=== PATIENT | female | born 1965 | race Caucasian/White ===

== ENCOUNTER 2017-01-16 07:46 | Inpatient (IN) | payer MEDICAID, OTHER ==
[~2017-01-16] VITALS: Ht 162.6 cm; Wt 100.0 kg
[2017-01-16 08:02] LABS: GLUCOSE,POINT OF CARE 69 MG/DL (70-110)
[2017-01-16 08:22] LABS: BASOPHILS # (AUTO) 0.04 K/uL (0.00-0.20); BASOPHILS % (AUTO) 0.5 % (0.0-2.0); EOSINOPHILS # (AUTO) 0.24 K/uL (0.00-0.70); EOSINOPHILS % (AUTO) 2.73 % (1.0-6.0); HEMATOCRIT 32.6 % (36-46); LYMPHOCYTES # (AUTO) 2.5 K/uL (1.0-4.8); LYMPHOCYTES % (AUTO) 28.3 % (22.0-44.0); MEAN CORPUSCULAR HEMOGLOBIN 28.7 pg (26.0-34.0); MEAN CORPUSCULAR HGB CONC 33.7 G/dL (31.0-37.0); MEAN CORPUSCULAR VOLUME 85 fL (80-100); MONOCYTES # (AUTO) 0.8 K/uL (0.1-1.0); MONOCYTES % (AUTO) 9.3 % (2.0-9.0); NEUTROPHILS # (AUTO) 5.2 K/uL (1.8-7.7); NEUTROPHILS % (AUTO) 59.3 % (40.0-70.0); PLATELET COUNT (AUTO) 244 K/uL (150-450); RED BLOOD CELL COUNT(AUTO) 3.84 MIL/uL (4.00-5.20); RED CELL DISTRIBUTION WIDTH 14.7 % (11.5-14.5); WHITE BLOOD COUNT (AUTO) 8.8 K/uL (4.5-11.0)
[2017-01-16 08:27] LABS: ANION GAP 10 mmol/L (8-16); CALCIUM, TOTAL 9.3 mg/dL (8.8-10.5); CARBON DIOXIDE 26 mmol/L (22-29); CHLORIDE 102 mmol/L (98-107); CREATININE 0.84 mg/dL (0.60-1.30); GLOMERULAR FILTR. RATE CALC > 60 mL/min (>60); POTASSIUM 3.7 mmol/L (3.5-5.1); SODIUM SERUM 138 mmol/L (136-145); UREA NITROGEN, BLOOD 19 mg/dL (7-18)
[2017-01-16] MEDS ORDERED: DiphenhydrAMINE HCL 50 MG/ML VIAL IM ONE (08:30)
[2017-01-16] MEDS ORDERED: LORazepam 2 MG/ML VIAL IM ONE (08:30)
[2017-01-16] MEDS ORDERED: HALOPERIDOL LACTATE 5 MG/ML VIAL IM ONE (08:30)
[2017-01-16 08:33] LABS: ALANINE AMINOTRANSFERASE 25 U/L (12-78); ALBUMIN 3.8 g/dL (3.4-5.0); ASPARTATE AMINOTRANSFERASE 34 U/L (15-37); BILIRUBIN,TOTAL 0.3 mg/dL (0.1-1.0); TOTAL PROTEIN, SERUM 7.4 g/dL (6.4-8.2)
[2017-01-16] MEDS ORDERED: ZOLPIDEM TARTRATE 10 MG TABLET PO PRN ×2 (09:15→10:45)
[2017-01-16] MEDS ORDERED: OLANZapine 5 MG RAPDIS TABLET PO PRN ×2 (09:15→10:45)
[2017-01-16] MEDS ORDERED: LORazepam 2 MG TABLET PO PRN ×2 (09:15→10:45)
[2017-01-16] MEDS ORDERED: GuaiFENesin/D-METHORPHAN [SUGAR-FREE] 200-20MG/10 ML SYRUP UDCUP PO PRN (13:15)
[2017-01-16] MEDS ORDERED: HydrOXYzine PAMOATE 50 MG CAPSULE PO PRN (13:15)
[2017-01-16] MEDS ORDERED: LOPERAMIDE HCL 2 MG CAPSULE PO PRN (13:15)
[2017-01-16] MEDS ORDERED: PROMETHAZINE HCL 25 MG TABLET PO PRN (13:15)
[2017-01-16] MEDS ORDERED: MAGNESIUM HYDROXIDE SUSPENSION 30 ML UDCUP PO PRN (13:15)
[2017-01-16] MEDS ORDERED: TUBERCULIN, PURIFIED PROTEIN DERIVATIVE 5 TU/0.1 ML SYG ID ONE (13:15)
[2017-01-16] MEDS ORDERED: MAG HYDROX/AL HYDROX/SIMETH ES 30 ML SUSPENSION UDCUP PO PRN (13:15)
[2017-01-16] MEDS: THIAMINE HCL 100 MG TABLET PO SCH (16:27)
[2017-01-16] MEDS ORDERED: OLANZapine 5 MG RAPDIS TABLET PO SCH ×2 (21:00)
[2017-01-17 01:00] VITALS: BP 100/60
[2017-01-17] MEDS: ACETAMINOPHEN 325 MG TABLET PO PRN ×3 (01:04→13:40)
[2017-01-17 08:10] VITALS: BP 107/58
[2017-01-17] MEDS: MULTIVITAMINS WITH MINERALS, THERAPEUTIC TABLET PO SCH (08:10)
[2017-01-17] MEDS: FOLIC ACID 1 MG TABLET PO SCH (08:11)
[2017-01-17] MEDS: NALTREXONE HCL 50 MG TABLET PO SCH (08:11)
[2017-01-17] MEDS: THIAMINE HCL 100 MG TABLET PO SCH ×2 (08:11→16:19)
[2017-01-17 09:10] VITALS: BP 109/60
[2017-01-17 13:40] VITALS: BP 110/60
[2017-01-17 16:00] VITALS: BP 116/71
[2017-01-17] MEDS ORDERED: QUEtiapine FUMARATE 100 MG TABLET PO PRN (17:15)
[2017-01-17] MEDS ORDERED: QUEtiapine FUMARATE 200 MG TABLET PO SCH (21:00)
[2017-01-18 01:02] VITALS: BP 100/53
[2017-01-18 08:05] VITALS: BP 122/67
[2017-01-18] MEDS: THIAMINE HCL 100 MG TABLET PO SCH ×2 (08:19→16:06)
[2017-01-18] MEDS: MULTIVITAMINS WITH MINERALS, THERAPEUTIC TABLET PO SCH (08:19)
[2017-01-18] MEDS: FOLIC ACID 1 MG TABLET PO SCH (08:19)
[2017-01-18] MEDS: NALTREXONE HCL 50 MG TABLET PO SCH (08:20)
[2017-01-18 16:25] VITALS: BP 108/67
[2017-01-18] MEDS ORDERED: QUEtiapine FUMARATE 200 MG TABLET PO SCH (21:00)
[2017-01-19] MEDS: MULTIVITAMINS WITH MINERALS, THERAPEUTIC TABLET PO SCH (08:06)
[2017-01-19] MEDS: FOLIC ACID 1 MG TABLET PO SCH (08:06)
[2017-01-19] MEDS: THIAMINE HCL 100 MG TABLET PO SCH (08:06)
[2017-01-19] MEDS: NALTREXONE HCL 50 MG TABLET PO SCH (08:06)
[2017-01-19 08:33] VITALS: BP 121/79
[2017-01-19] MEDS ORDERED: NALT50 PO (09:21)
[2017-01-19] MEDS ORDERED: QUET200T PO (09:21)
== END 2017-01-19 11:30 | disposition home or self-care (01) | DRG 750 ==
LOC: EMS 07:51 → 3EC 11:01 → EMS 11:08
PROVIDERS: ADMIT Psychiatry & Neurology Psychiatry; ATTEND Psychiatry & Neurology Psychiatry
DX: F25.9 Schizoaffective disorder, unspecified (principal); Z78.1 Physical restraint status; E11.9 Type 2 diabetes mellitus without complications; E66.9 Obesity, unspecified; D64.9 Anemia, unspecified; F17.210 Nicotine dependence, cigarettes, uncomplicated; Z79.84 Long term (current) use of oral hypoglycemic drugs; Z65.3 Problems related to other legal circumstances; Z71.6 Tobacco abuse counseling; Z68.37 Body mass index [BMI] 37.0-37.9, adult; Z79.899 Other long term (current) drug therapy
CPT/HCPCS: 82962; 93005; 96372; 99285; G0480; J1200; J1630; J2060

== ENCOUNTER 2017-02-01 04:20 | Inpatient (IN) | payer MEDICAID, OTHER ==
[~2017-02-01] VITALS: Ht 157.5 cm; Wt 90.0 kg
[~2017-02-01 04:20] MED LIST: ATOR20TA86 PO; LEVO200 PO; METF1000 PO; NALT50 PO; QUET100T PO; QUET200T PO
[2017-02-01 04:42] LABS: GLUCOSE,POINT OF CARE 132 MG/DL (70-110)
[2017-02-01 04:59] LABS: BASOPHILS # (AUTO) 0.04 K/uL (0.00-0.20); BASOPHILS % (AUTO) 0.4 % (0.0-2.0); EOSINOPHILS # (AUTO) 0.28 K/uL (0.00-0.70); EOSINOPHILS % (AUTO) 2.96 % (1.0-6.0); HEMATOCRIT 35.6 % (36-46); HEMOGLOBIN 11.7 g/dL (12.0-16.0); LYMPHOCYTES # (AUTO) 2.8 K/uL (1.0-4.8); LYMPHOCYTES % (AUTO) 29.8 % (22.0-44.0); MEAN CORPUSCULAR HEMOGLOBIN 28.5 pg (26.0-34.0); MEAN CORPUSCULAR HGB CONC 32.9 G/dL (31.0-37.0); MEAN CORPUSCULAR VOLUME 87 fL (80-100); MONOCYTES # (AUTO) 0.4 K/uL (0.1-1.0); MONOCYTES % (AUTO) 3.9 % (2.0-9.0); NEUTROPHILS # (AUTO) 5.9 K/uL (1.8-7.7); PLATELET COUNT (AUTO) 302 K/uL (150-450); RED CELL DISTRIBUTION WIDTH 15.7 % (11.5-14.5); WHITE BLOOD COUNT (AUTO) 9.4 K/uL (4.5-11.0)
[2017-02-01 05:05] LABS: ANION GAP 6 mmol/L (8-16); CALCIUM, TOTAL 9.4 mg/dL (8.8-10.5); CARBON DIOXIDE 32 mmol/L (22-29); CHLORIDE 105 mmol/L (98-107); CREATININE 0.75 mg/dL (0.60-1.30); GLOMERULAR FILTR. RATE CALC > 60 mL/min (>60); POTASSIUM 4.1 mmol/L (3.5-5.1); SODIUM SERUM 143 mmol/L (136-145); UREA NITROGEN, BLOOD 13 mg/dL (7-18)
[2017-02-01 05:11] LABS: ALANINE AMINOTRANSFERASE 36 U/L (12-78); ALBUMIN 4.2 g/dL (3.4-5.0); ASPARTATE AMINOTRANSFERASE 27 U/L (15-37); BILIRUBIN,TOTAL 0.4 mg/dL (0.1-1.0); TOTAL PROTEIN, SERUM 8.4 g/dL (6.4-8.2)
[2017-02-01] MEDS ORDERED: HALOPERIDOL 5 MG TABLET PO PRN (06:00)
[2017-02-01] MEDS ORDERED: DiphenhydrAMINE HCL 50 MG/ML VIAL IM ONE (06:00)
[2017-02-01] MEDS ORDERED: LORazepam 2 MG TABLET PO PRN (06:00)
[2017-02-01] MEDS ORDERED: LORazepam 2 MG/ML VIAL IM ONE (06:00)
[2017-02-01] MEDS ORDERED: ZOLPIDEM TARTRATE 10 MG TABLET PO PRN (06:00)
[2017-02-01] MEDS ORDERED: HALOPERIDOL LACTATE 5 MG/ML VIAL IM ONE (06:00)
[2017-02-01 06:36] LABS: ADD UA MICROSCOPIC NO; APPEARANCE,URINE CLEAR (CLEAR); GLUCOSE, URINE (UA) NEGATIVE (NEGATIVE); KETONES,URINE NEGATIVE (NEGATIVE); LEUKOCYTE ESTERASE ,URINE NEGATIVE (NEGATIVE); OCCULT BLOOD,URINE NEGATIVE (NEGATIVE); PH,URINE 5.5 (5.0-8.0); PROTEIN,URINE NEGATIVE (NEGATIVE)
[2017-02-01 12:07] LABS: GLUCOSE,POINT OF CARE 130 MG/DL (70-110)
[2017-02-01 14:42] VITALS: BP 119/60
[2017-02-01 14:42] LABS: GLUCOSE,POINT OF CARE 221 MG/DL (70-110)
[2017-02-01] MEDS ORDERED: GLUCAGON,HUMAN RECOMBINANT 1 MG VIAL IM PRN (14:45)
[2017-02-01] MEDS ORDERED: PNEUMOCOCCAL VACCINE POLYVALENT 0.5 ML VIAL [PPSV23] IM ONE (15:30)
[2017-02-01 16:05] VITALS: BP 132/77
[2017-02-01] MEDS ORDERED: PROMETHAZINE HCL 25 MG TABLET PO PRN (16:15)
[2017-02-01] MEDS ORDERED: HydrOXYzine PAMOATE 50 MG CAPSULE PO PRN (16:15)
[2017-02-01] MEDS ORDERED: GuaiFENesin/D-METHORPHAN [SUGAR-FREE] 200-20MG/10 ML SYRUP UDCUP PO PRN (16:15)
[2017-02-01] MEDS ORDERED: QUEtiapine FUMARATE 100 MG TABLET PO PRN (16:15)
[2017-02-01] MEDS ORDERED: LOPERAMIDE HCL 2 MG CAPSULE PO PRN (16:15)
[2017-02-01] MEDS ORDERED: MAGNESIUM HYDROXIDE SUSPENSION 30 ML UDCUP PO PRN (16:15)
[2017-02-01] MEDS ORDERED: ACETAMINOPHEN 325 MG TABLET PO PRN (16:15)
[2017-02-01] MEDS ORDERED: MAG HYDROX/AL HYDROX/SIMETH ES 30 ML SUSPENSION UDCUP PO PRN (16:15)
[2017-02-01 16:52] LABS: GLUCOSE COMMENT 1 Received Meds; GLUCOSE,POINT OF CARE 143 MG/DL (70-110)
[2017-02-01] MEDS: THIAMINE HCL 100 MG TABLET PO SCH (16:56)
[2017-02-01] MEDS: MetFORMIN HCL 500 MG TABLET PO SCH (16:56)
[2017-02-01] MEDS: INSULIN ASPART 100 UNITS/ML SQ PRN (17:05)
[2017-02-01] MEDS ORDERED: QUEtiapine FUMARATE 200 MG TABLET PO SCH (21:00)
[2017-02-01 21:02] LABS: GLUCOSE,POINT OF CARE 129 MG/DL (70-110)
[2017-02-02 02:47] VITALS: BP 117/72
[2017-02-02] MEDS: MetFORMIN HCL 500 MG TABLET PO SCH ×2 (06:20→16:52)
[2017-02-02 06:26] LABS: GLUCOSE,POINT OF CARE 99 MG/DL (70-110)
[2017-02-02 08:27] VITALS: BP 117/57
[2017-02-02] MEDS: FOLIC ACID 1 MG TABLET PO SCH (09:00)
[2017-02-02] MEDS: MULTIVITAMINS WITH MINERALS, THERAPEUTIC TABLET PO SCH (09:00)
[2017-02-02] MEDS: THIAMINE HCL 100 MG TABLET PO SCH ×2 (09:00→16:46)
[2017-02-02] MEDS: NALTREXONE HCL 50 MG TABLET PO SCH (09:00)
[2017-02-02 12:17] LABS: GLUCOSE,POINT OF CARE 98 MG/DL (70-110)
[2017-02-02] MEDS ORDERED: NALT50 PO (14:43)
[2017-02-02] MEDS ORDERED: QUET200T29 PO (14:43)
[2017-02-02 16:17] VITALS: BP 109/63
[2017-02-02 16:36] LABS: GLUCOSE,POINT OF CARE 193 MG/DL (70-110)
[2017-02-02] MEDS: INSULIN ASPART 100 UNITS/ML SQ PRN ×2 (16:52→20:17)
[2017-02-02 20:12] LABS: GLUCOSE,POINT OF CARE 148 MG/DL (70-110)
[2017-02-02] MEDS: BENZOCAINE/MENTHOL LOZENGE PO PRN (20:18)
[2017-02-02] MEDS ORDERED: QUEtiapine FUMARATE 200 MG TABLET PO SCH (21:00)
[2017-02-03 06:17] LABS: GLUCOSE,POINT OF CARE 116 MG/DL (70-110)
[2017-02-03] MEDS: MetFORMIN HCL 500 MG TABLET PO SCH (06:33)
[2017-02-03] MEDS ORDERED: METF500T4 PO (07:59)
[2017-02-03 08:23] VITALS: BP 116/72
[2017-02-03] MEDS: THIAMINE HCL 100 MG TABLET PO SCH (08:51)
[2017-02-03] MEDS: MULTIVITAMINS WITH MINERALS, THERAPEUTIC TABLET PO SCH (08:51)
[2017-02-03] MEDS: NALTREXONE HCL 50 MG TABLET PO SCH (08:51)
[2017-02-03] MEDS: FOLIC ACID 1 MG TABLET PO SCH (08:51)
[2017-02-03] MEDS: BENZOCAINE/MENTHOL LOZENGE PO PRN (10:01)
== END 2017-02-03 11:16 | disposition home or self-care (01) | DRG 750 ==
LOC: EMS 04:22 → EEVIPCON 04:22 → B3A 12:48
PROVIDERS: ADMIT Psychiatry & Neurology Psychiatry; ATTEND Psychiatry & Neurology Psychiatry
DX: F25.0 Schizoaffective disorder, bipolar type (principal); E11.9 Type 2 diabetes mellitus without complications; I10 Essential (primary) hypertension; F17.210 Nicotine dependence, cigarettes, uncomplicated; J11.1 Influenza due to unidentified influenza virus with other respiratory manifestations; Z91.14 Patient's other noncompliance with medication regimen; Z91.19 Patient's noncompliance with other medical treatment and regimen; Z79.84 Long term (current) use of oral hypoglycemic drugs; Z28.21 Immunization not carried out because of patient refusal; Z79.899 Other long term (current) drug therapy
CPT/HCPCS: 82962; 87081; 96372; 99285; G0480; J1200; J1630; J2060

== ENCOUNTER 2018-08-24 08:57 | Inpatient (IN) | payer MEDICAID, OTHER ==
[~2018-08-24] VITALS: Ht 172.7 cm; Wt 91.9 kg
[~2018-08-24 08:57] MED LIST changes: +METF-960 PO; -NALT50 PO; +NALT50TA6 PO; -QUET200T PO; +QUET200T29 PO
[2018-08-24 10:24] LABS: BASOPHILS % (AUTO) 0.7 % (0.0-2.0); EOSINOPHILS % (AUTO) 2.2 % (1.0-6.0); HEMATOCRIT 31.2 % (36-46); HEMOGLOBIN 10.8 g/dL (12.0-16.0); LYMPHOCYTES # (AUTO) 2.8 K/uL (1.0-4.8); LYMPHOCYTES % (AUTO) 31.9 % (22.0-44.0); MEAN CORPUSCULAR HEMOGLOBIN 30.6 pg (26.0-34.0); MEAN CORPUSCULAR HGB CONC 34.5 G/dL (31.0-37.0); MEAN CORPUSCULAR VOLUME 89 fL (80-100); MONOCYTES # (AUTO) 0.6 K/uL (0.1-1.0); MONOCYTES % (AUTO) 7.3 % (2.0-9.0); NEUTROPHILS # (AUTO) 5.1 K/uL (1.8-7.7); NEUTROPHILS % (AUTO) 57.9 % (40.0-70.0); PLATELET COUNT (AUTO) 295 K/uL (150-450); RED BLOOD CELL COUNT(AUTO) 3.52 MIL/uL (4.00-5.20); RED CELL DISTRIBUTION WIDTH 14.1 % (11.5-14.5)
[2018-08-24 10:33] LABS: ANION GAP 8 mmol/L (8-16); CALCIUM, TOTAL 8.9 mg/dL (8.8-10.5); CARBON DIOXIDE 28 mmol/L (22-29); CHLORIDE 104 mmol/L (98-107); CREATININE 0.64 mg/dL (0.60-1.30); GLOMERULAR FILTR. RATE CALC > 60 mL/min (>60); GLUCOSE,RANDOM 165 mg/dL (70-110); POTASSIUM 3.6 mmol/L (3.5-5.1); SODIUM SERUM 140 mmol/L (136-145); UREA NITROGEN, BLOOD 11 mg/dL (7-18)
[2018-08-24 10:38] LABS: ALANINE AMINOTRANSFERASE 31 U/L (12-78); ALBUMIN 3.6 g/dL (3.4-5.0); ALKALINE PHOSPHATASE 100 U/L (46-116); ASPARTATE AMINOTRANSFERASE 22 U/L (15-37); BILIRUBIN,TOTAL 0.4 mg/dL (0.1-1.0); TOTAL PROTEIN, SERUM 7.7 g/dL (6.4-8.2)
[2018-08-24] MEDS ORDERED: HALOPERIDOL LACTATE 5 MG/ML VIAL IM ONE (11:15)
[2018-08-24] MEDS ORDERED: LORazepam 2 MG/ML VIAL IM ONE (11:15)
[2018-08-24] MEDS ORDERED: DiphenhydrAMINE HCL 50 MG/ML VIAL IM ONE (11:15)
[2018-08-24] MEDS ORDERED: OLANZapine 5 MG RAPDIS TABLET PO PRN (14:45)
[2018-08-24] MEDS ORDERED: ZOLPIDEM TARTRATE 10 MG TABLET PO PRN (14:45)
[2018-08-24] MEDS ORDERED: PETROLATUM,WHITE 71 GM JELLY TP PRN ×2 (15:00→18:30)
[2018-08-24] MEDS ORDERED: DOCUSATE SODIUM 100 MG CAPSULE PO PRN ×2 (15:00→18:30)
[2018-08-24] MEDS ORDERED: ACETAMINOPHEN 325 MG TABLET PO PRN ×2 (15:00→18:30)
[2018-08-24] MEDS ORDERED: MAGNESIUM HYDROXIDE SUSPENSION 30 ML UDCUP PO PRN ×2 (15:00→18:30)
[2018-08-24] MEDS ORDERED: CloNIDine HCL 0.1 MG TABLET PO PRN ×2 (15:00→18:30)
[2018-08-24] MEDS ORDERED: ALBUTEROL SULFATE HFA 90 MCG/PUFF 8 GM INHALER IH PRN ×2 (15:00→18:30)
[2018-08-24] MEDS ORDERED: ONDANSETRON HCL 4 MG TABLET PO PRN ×2 (15:00→18:30)
[2018-08-24] MEDS ORDERED: MAG HYDROX/AL HYDROX/SIMETH ES 30 ML SUSPENSION UDCUP PO PRN ×2 (15:00→18:30)
[2018-08-24] MEDS ORDERED: NICOTINE 14 MG/24 HOUR PATCH TD PRN ×2 (15:00→18:30)
[2018-08-24] MEDS ORDERED: IBUPROFEN 400 MG TABLET PO PRN ×2 (15:00→18:30)
[2018-08-24] MEDS ORDERED: GuaiFENesin/D-METHORPHAN [SUGAR-FREE] 200-20MG/10 ML SYRUP UDCUP PO PRN ×2 (15:00→18:30)
[2018-08-24] MEDS ORDERED: LOPERAMIDE HCL 2 MG CAPSULE PO PRN ×2 (15:00→18:30)
[2018-08-24 16:30] VITALS: BP 101/69
[2018-08-24] MEDS ORDERED: PNEUMOCOCCAL VACCINE POLYVALENT 0.5 ML VIAL [PPSV23] IM ONE (19:30)
[2018-08-25 04:57] VITALS: BP 133/76
[2018-08-25] MEDS: MetFORMIN HCL 500 MG TABLET PO SCH ×2 (06:40→16:31)
[2018-08-25 07:28] LABS: GLUCOMETER DEV NAME(LOC) BV3S 2; GLUCOSE,POINT OF CARE 99 MG/DL (70-110)
[2018-08-25 07:28] LABS: GLUCOMETER DEV NAME(LOC) BV3S 2; GLUCOSE,POINT OF CARE 206 MG/DL (70-110)
[2018-08-25 07:31] LABS: BASOPHILS % (AUTO) 0.6 % (0.0-2.0); EOSINOPHILS % (AUTO) 1.5 % (1.0-6.0); LYMPHOCYTES # (AUTO) 2.4 K/uL (1.0-4.8); LYMPHOCYTES % (AUTO) 25.6 % (22.0-44.0); MEAN CORPUSCULAR HEMOGLOBIN 30.8 pg (26.0-34.0); MEAN CORPUSCULAR HGB CONC 34.5 G/dL (31.0-37.0); MEAN CORPUSCULAR VOLUME 90 fL (80-100); MONOCYTES # (AUTO) 0.5 K/uL (0.1-1.0); MONOCYTES % (AUTO) 5.1 % (2.0-9.0); NEUTROPHILS # (AUTO) 6.3 K/uL (1.8-7.7); NEUTROPHILS % (AUTO) 67.2 % (40.0-70.0); PLATELET COUNT (AUTO) 288 K/uL (150-450); RED BLOOD CELL COUNT(AUTO) 3.58 MIL/uL (4.00-5.20); RED CELL DISTRIBUTION WIDTH 14.2 % (11.5-14.5)
[2018-08-25 08:05] LABS: ALANINE AMINOTRANSFERASE 26 U/L (12-78); ALBUMIN 3.4 g/dL (3.4-5.0); ALKALINE PHOSPHATASE 99 U/L (46-116); ANION GAP 3 mmol/L (8-16); ASPARTATE AMINOTRANSFERASE 23 U/L (15-37); BILIRUBIN,TOTAL 0.4 mg/dL (0.1-1.0); CALCIUM, TOTAL 8.6 mg/dL (8.8-10.5); CARBON DIOXIDE 34 mmol/L (22-29); CHLORIDE 105 mmol/L (98-107); CHOL/HDL RATIO 3.3 (3.9-5.7); CHOLESTEROL 160 mg/dL (131-200); CREATININE 0.81 mg/dL (0.60-1.30); GLOMERULAR FILTR. RATE CALC > 60 mL/min (>60); GLUCOSE,RANDOM 167 mg/dL (70-110); HDL CHOLESTEROL 49 mg/dL (40-60); LDL CHOL (CALC.) 90 mg/dL (0-130); POTASSIUM 4.3 mmol/L (3.5-5.1); SODIUM SERUM 142 mmol/L (136-145); THYROID STIMULATING HORMONE 6.56 uIU/mL (0.36-3.74); TOTAL PROTEIN, SERUM 6.8 g/dL (6.4-8.2); TRIGLYCERIDES 104 mg/dL (15-150); UREA NITROGEN, BLOOD 10 mg/dL (7-18)
[2018-08-25 08:13] LABS: HEMOGLOBIN A1C 8.4 % (4.5-6.2)
[2018-08-25 08:19] VITALS: BP 124/69
[2018-08-25 10:43] LABS: GLUCOMETER DEV NAME(LOC) BV3S 2; GLUCOSE,POINT OF CARE 188 MG/DL (70-110)
[2018-08-25] MEDS: FLUoxetine HCL 20 MG CAPSULE PO SCH (10:43)
[2018-08-25] MEDS: ATORVASTATIN CALCIUM 20 MG TABLET PO SCH (10:43)
[2018-08-25] MEDS: LORazepam 2 MG TABLET PO PRN (16:31)
[2018-08-25] MEDS: QUEtiapine FUMARATE 100 MG TABLET PO SCH (20:19)
[2018-08-26] MEDS: LEVOTHYROXINE SODIUM 200 MCG TABLET PO SCH (06:22)
[2018-08-26] MEDS: MetFORMIN HCL 500 MG TABLET PO SCH ×3 (06:38→17:41)
[2018-08-26 08:19] VITALS: BP 105/58
[2018-08-26] MEDS: FLUoxetine HCL 20 MG CAPSULE PO SCH (08:48)
[2018-08-26] MEDS: ATORVASTATIN CALCIUM 20 MG TABLET PO SCH (08:49)
[2018-08-26 11:18] LABS: GLUCOMETER DEV NAME(LOC) BV3S 2; GLUCOSE,POINT OF CARE 136 MG/DL (70-110)
[2018-08-26 11:18] LABS: GLUCOMETER DEV NAME(LOC) BV3S 2; GLUCOSE,POINT OF CARE 207 MG/DL (70-110)
[2018-08-26 12:28] LABS: GLUCOMETER DEV NAME(LOC) BV3S 2; GLUCOSE,POINT OF CARE 176 MG/DL (70-110)
[2018-08-26 16:07] VITALS: BP 115/85
[2018-08-26] MEDS: LORazepam 2 MG TABLET PO PRN (17:41)
[2018-08-26 20:58] LABS: GLUCOMETER DEV NAME(LOC) BV3S 2; GLUCOSE,POINT OF CARE 172 MG/DL (70-110)
[2018-08-26] MEDS: QUEtiapine FUMARATE 100 MG TABLET PO SCH (21:20)
[2018-08-27 06:05] VITALS: BP 118/82
[2018-08-27] MEDS: LEVOTHYROXINE SODIUM 200 MCG TABLET PO SCH (06:12)
[2018-08-27] MEDS: MetFORMIN HCL 500 MG TABLET PO SCH ×2 (06:43→16:18)
[2018-08-27 06:49] LABS: GLUCOMETER DEV NAME(LOC) BV3S 2; GLUCOSE,POINT OF CARE 116 MG/DL (70-110)
[2018-08-27 08:22] VITALS: BP 130/76
[2018-08-27] MEDS: ATORVASTATIN CALCIUM 20 MG TABLET PO SCH (08:51)
[2018-08-27] MEDS: FLUoxetine HCL 20 MG CAPSULE PO SCH (08:51)
[2018-08-27] MEDS: LORazepam 2 MG TABLET PO PRN ×2 (09:36→16:18)
[2018-08-27 11:48] LABS: GLUCOMETER DEV NAME(LOC) BV3S 2; GLUCOSE,POINT OF CARE 103 MG/DL (70-110)
[2018-08-27 16:53] LABS: GLUCOMETER DEV NAME(LOC) BV3S 2; GLUCOSE,POINT OF CARE 245 MG/DL (70-110)
[2018-08-27 17:16] VITALS: BP 132/85
[2018-08-27] MEDS: QUEtiapine FUMARATE 100 MG TABLET PO SCH (20:15)
[2018-08-27 20:28] LABS: GLUCOMETER DEV NAME(LOC) BV3S 2; GLUCOSE,POINT OF CARE 135 MG/DL (70-110)
[2018-08-28 00:47] VITALS: BP 132/92
[2018-08-28] MEDS: LEVOTHYROXINE SODIUM 200 MCG TABLET PO SCH (05:55)
[2018-08-28 06:09] LABS: GLUCOMETER DEV NAME(LOC) BV3S 2; GLUCOSE,POINT OF CARE 158 MG/DL (70-110)
[2018-08-28] MEDS: MetFORMIN HCL 500 MG TABLET PO SCH ×2 (06:32→16:51)
[2018-08-28 08:14] VITALS: BP 142/77
[2018-08-28] MEDS: ATORVASTATIN CALCIUM 20 MG TABLET PO SCH (09:29)
[2018-08-28] MEDS: FLUoxetine HCL 20 MG CAPSULE PO SCH (09:30)
[2018-08-28 11:48] LABS: GLUCOMETER DEV NAME(LOC) BV3S 2; GLUCOSE,POINT OF CARE 97 MG/DL (70-110)
[2018-08-28 16:26] VITALS: BP 150/96
[2018-08-28 16:58] LABS: GLUCOMETER DEV NAME(LOC) BV3S 2; GLUCOSE,POINT OF CARE 121 MG/DL (70-110)
[2018-08-28] MEDS: QUEtiapine FUMARATE 100 MG TABLET PO SCH (20:09)
[2018-08-28 20:40] VITALS: BP 135/85
[2018-08-29] MEDS: LEVOTHYROXINE SODIUM 200 MCG TABLET PO SCH (06:18)
[2018-08-29 06:35] LABS: GLUCOMETER DEV NAME(LOC) BV3S 2; GLUCOSE,POINT OF CARE 176 MG/DL (70-110)
[2018-08-29 06:35] LABS: GLUCOMETER DEV NAME(LOC) BV3S 2; GLUCOSE,POINT OF CARE 189 MG/DL (70-110)
[2018-08-29] MEDS: MetFORMIN HCL 500 MG TABLET PO SCH (06:43)
[2018-08-29 07:14] VITALS: BP 127/73
[2018-08-29 08:11] VITALS: BP 129/81
[2018-08-29] MEDS: ATORVASTATIN CALCIUM 20 MG TABLET PO SCH (08:32)
[2018-08-29] MEDS: LORazepam 2 MG TABLET PO PRN (08:32)
[2018-08-29] MEDS: FLUoxetine HCL 20 MG CAPSULE PO SCH (08:32)
[2018-08-29 11:58] LABS: GLUCOMETER DEV NAME(LOC) BV3S 2; GLUCOSE,POINT OF CARE 145 MG/DL (70-110)
[2018-08-29] MEDS ORDERED: FLUO40CA7 PO (13:00)
== END 2018-08-29 14:00 | disposition home or self-care (01) | DRG 750 ==
LOC: EMS 08:59 → B3A 15:16
PROVIDERS: ADMIT Psychiatry & Neurology Psychiatry; ATTEND Psychiatry & Neurology Psychiatry
DX: F25.0 Schizoaffective disorder, bipolar type (principal); R45.851 Suicidal ideations; F15.20 Other stimulant dependence, uncomplicated; E11.9 Type 2 diabetes mellitus without complications; D64.9 Anemia, unspecified; E03.9 Hypothyroidism, unspecified; E78.5 Hyperlipidemia, unspecified; F17.200 Nicotine dependence, unspecified, uncomplicated; F41.9 Anxiety disorder, unspecified; I10 Essential (primary) hypertension; Z79.4 Long term (current) use of insulin; Z79.899 Other long term (current) drug therapy; Z79.890 Hormone replacement therapy; Z88.0 Allergy status to penicillin; Z71.6 Tobacco abuse counseling
CPT/HCPCS: 83036; 84439; 84443; 90686; 96372; 99291; G0480; J1200; J1630; J2060

== ENCOUNTER 2020-01-23 15:30 | Inpatient (IN) | payer MEDICAID ==
[~2020-01-23] VITALS: Ht 157.5 cm; Wt 80.3 kg
[~2020-01-23 15:30] MED LIST changes: +FLUO40CA7 PO; -METF1000 PO; -NALT50TA6 PO; -QUET200T29 PO
[2020-01-23] MEDS ORDERED: OLAN10TA6 PO (16:46)
[2020-01-23] MEDS ORDERED: ZOLPIDEM TARTRATE 10 MG TABLET PO PRN (18:30)
[2020-01-23] MEDS ORDERED: PNEUMOCOCCAL VACCINE POLYVALENT 0.5 ML VIAL [PPSV23] IM ONE (18:30)
[2020-01-23] MEDS ORDERED: LORazepam 2 MG TABLET PO PRN (18:30)
[2020-01-23] MEDS ORDERED: HALOPERIDOL 5 MG TABLET PO PRN (18:30)
[2020-01-23] MEDS ORDERED: INFLUENZA VIRUS VACCINE QVS 2019-20 (3YR+)/PF 60 MCG/0.5 ML SYRINGE IM ONE (18:30)
[2020-01-23 19:17] VITALS: BP 95/60
[2020-01-24 03:01] VITALS: BP 99/63
[2020-01-24 07:52] LABS: BASOPHILS % (AUTO) 0.7 % (0.0-2.0); HEMATOCRIT 37.8 % (36-46); HEMOGLOBIN 12.3 g/dL (12.0-16.0); LYMPHOCYTES # (AUTO) 2.3 K/uL (1.0-4.8); LYMPHOCYTES % (AUTO) 30.6 % (22.0-44.0); MEAN CORPUSCULAR HEMOGLOBIN 29.2 pg (26.0-34.0); MEAN CORPUSCULAR HGB CONC 32.5 G/dL (31.0-37.0); MEAN CORPUSCULAR VOLUME 90 fL (80-100); MONOCYTES # (AUTO) 0.5 K/uL (0.1-1.0); MONOCYTES % (AUTO) 6.5 % (2.0-9.0); NEUTROPHILS # (AUTO) 4.3 K/uL (1.8-7.7); NEUTROPHILS % (AUTO) 58.2 % (40.0-70.0); PLATELET COUNT (AUTO) 249 K/uL (150-450); RED BLOOD CELL COUNT(AUTO) 4.21 MIL/uL (4.00-5.20); RED CELL DISTRIBUTION WIDTH 13.9 % (11.5-14.5)
[2020-01-24 08:02] VITALS: BP 101/56
[2020-01-24 08:22] LABS: HEMOGLOBIN A1C 6.4 % (3.8-5.6)
[2020-01-24 08:31] LABS: ALANINE AMINOTRANSFERASE 35 U/L (12-78); ALBUMIN 3.7 g/dL (3.4-5.0); ALKALINE PHOSPHATASE 82 U/L (46-116); ANION GAP 8 mmol/L (8-16); ASPARTATE AMINOTRANSFERASE 37 U/L (15-37); BILIRUBIN,TOTAL 0.6 mg/dL (0.1-1.0); CALCIUM, TOTAL 9.2 mg/dL (8.8-10.5); CARBON DIOXIDE 29 mmol/L (22-29); CHLORIDE 107 mmol/L (98-107); CHOL/HDL RATIO 2.7 (3.9-5.7); CHOLESTEROL 167 mg/dL (131-200); FREE T4 (FREE THYROXINE) 0.58 ng/dL (0.76-1.46); GLOMERULAR FILTR. RATE CALC > 60 mL/min (>60); GLUCOSE,RANDOM 133 mg/dL (70-110); HDL CHOLESTEROL 62 mg/dL (40-60); LDL CHOL (CALC.) 94 mg/dL (0-130); POTASSIUM 3.7 mmol/L (3.5-5.1); SODIUM SERUM 144 mmol/L (136-145); THYROID STIMULATING HORMONE 46.49 uIU/mL (0.36-3.74); TOTAL PROTEIN, SERUM 7.8 g/dL (6.4-8.2); TRIGLYCERIDES 56 mg/dL (15-150); UREA NITROGEN, BLOOD 21 mg/dL (7-18)
[2020-01-24] MEDS: BACITRACIN 28.4 GM OINTMENT TP SCH ×2 (08:37→16:23)
[2020-01-24] MEDS ORDERED: LEVOTHYROXINE SODIUM 150 MCG TABLET PO SCH ×2 (10:00→16:30)
[2020-01-24] MEDS ORDERED: NICOTINE 14 MG/24 HOUR PATCH TD PRN (12:00)
[2020-01-24] MEDS ORDERED: ONDANSETRON HCL 4 MG TABLET PO PRN (12:00)
[2020-01-24] MEDS ORDERED: DOCUSATE SODIUM 100 MG CAPSULE PO PRN (12:00)
[2020-01-24] MEDS ORDERED: PETROLATUM,WHITE 28 GM JELLY TP PRN (12:00)
[2020-01-24] MEDS ORDERED: ACETAMINOPHEN 325 MG TABLET PO PRN (12:00)
[2020-01-24] MEDS ORDERED: ALBUTEROL SULFATE HFA 90 MCG/PUFF 8 GM INHALER IH PRN (12:00)
[2020-01-24] MEDS ORDERED: MAGNESIUM HYDROXIDE SUSPENSION 30 ML UDCUP PO PRN (12:00)
[2020-01-24] MEDS ORDERED: IBUPROFEN 400 MG TABLET PO PRN (12:00)
[2020-01-24] MEDS ORDERED: MAG HYDROX/AL HYDROX/SIMETH ES 30 ML SUSPENSION UDCUP PO PRN (12:00)
[2020-01-24] MEDS ORDERED: GuaiFENesin/D-METHORPHAN [SUGAR-FREE] 200-20MG/10 ML SYRUP UDCUP PO PRN (12:00)
[2020-01-24] MEDS ORDERED: CloNIDine HCL 0.1 MG TABLET PO PRN (12:00)
[2020-01-24] MEDS ORDERED: LOPERAMIDE HCL 2 MG CAPSULE PO PRN (12:00)
[2020-01-24] MEDS: MetFORMIN HCL 500 MG TABLET PO SCH (16:22)
[2020-01-24 17:36] VITALS: BP 103/61
[2020-01-24] MEDS: QUEtiapine FUMARATE 100 MG TABLET PO SCH (20:28)
[2020-01-25 03:19] VITALS: BP 100/64
[2020-01-25] MEDS: LEVOTHYROXINE SODIUM 200 MCG TABLET PO SCH (06:37)
[2020-01-25] MEDS: MetFORMIN HCL 500 MG TABLET PO SCH ×2 (07:08→16:47)
[2020-01-25 08:18] VITALS: BP 119/68
[2020-01-25] MEDS: ATORVASTATIN CALCIUM 20 MG TABLET PO SCH (09:19)
[2020-01-25] MEDS: BACITRACIN 28.4 GM OINTMENT TP SCH ×2 (09:19→16:47)
[2020-01-25 16:00] VITALS: BP 109/60
[2020-01-25] MEDS: QUEtiapine FUMARATE 100 MG TABLET PO SCH (20:21)
[2020-01-26 02:08] VITALS: BP 128/72
[2020-01-26] MEDS: MetFORMIN HCL 500 MG TABLET PO SCH ×2 (06:38→16:22)
[2020-01-26] MEDS: LEVOTHYROXINE SODIUM 200 MCG TABLET PO SCH (06:38)
[2020-01-26 08:18] VITALS: BP 139/68
[2020-01-26 08:20] VITALS: BP 139/68
[2020-01-26] MEDS: ATORVASTATIN CALCIUM 20 MG TABLET PO SCH (08:53)
[2020-01-26] MEDS: BACITRACIN 28.4 GM OINTMENT TP SCH ×2 (09:37→16:22)
[2020-01-26 16:25] LABS: GLUCOMETER DEV NAME(LOC) BV3N.; GLUCOSE,POINT OF CARE 182 MG/DL (70-110)
[2020-01-26 16:33] VITALS: BP 130/70
[2020-01-26] MEDS: QUEtiapine FUMARATE 100 MG TABLET PO SCH (20:15)
[2020-01-26 20:22] LABS: GLUCOMETER DEV NAME(LOC) BV3N.; GLUCOSE,POINT OF CARE 185 MG/DL (70-110)
[2020-01-27 03:23] VITALS: BP 136/76
[2020-01-27] MEDS: LEVOTHYROXINE SODIUM 200 MCG TABLET PO SCH (06:06)
[2020-01-27] MEDS: MetFORMIN HCL 500 MG TABLET PO SCH ×2 (06:06→16:22)
[2020-01-27 08:13] VITALS: BP 127/74
[2020-01-27] MEDS: BACITRACIN 28.4 GM OINTMENT TP SCH ×2 (08:55→16:23)
[2020-01-27] MEDS: ATORVASTATIN CALCIUM 20 MG TABLET PO SCH (08:55)
[2020-01-27 12:11] LABS: GLUCOMETER DEV NAME(LOC) BV3N.; GLUCOSE,POINT OF CARE 127 MG/DL (70-110)
[2020-01-27 16:12] VITALS: BP 110/68
[2020-01-27 16:56] LABS: GLUCOMETER DEV NAME(LOC) BV3N.; GLUCOSE,POINT OF CARE 183 MG/DL (70-110)
[2020-01-27] MEDS: QUEtiapine FUMARATE 100 MG TABLET PO SCH (20:53)
[2020-01-27 22:33] LABS: GLUCOMETER DEV NAME(LOC) BV3N.; GLUCOSE,POINT OF CARE 129 MG/DL (70-110)
[2020-01-28 01:34] VITALS: BP 128/72
[2020-01-28] MEDS: MetFORMIN HCL 500 MG TABLET PO SCH (07:17)
[2020-01-28] MEDS: LEVOTHYROXINE SODIUM 200 MCG TABLET PO SCH (07:38)
[2020-01-28 08:28] VITALS: BP 117/66
[2020-01-28] MEDS: ATORVASTATIN CALCIUM 20 MG TABLET PO SCH (08:59)
[2020-01-28] MEDS: BACITRACIN 28.4 GM OINTMENT TP SCH ×2 (09:00→17:09)
[2020-01-28] MEDS ORDERED: BACI30OI10 TP (10:10)
[2020-01-28] MEDS ORDERED: METF-960 PO (10:12)
[2020-01-28] MEDS ORDERED: BACITRACIN 28.4 GM OINTMENT TP SCH (17:00)
[2020-01-28] MEDS ORDERED: MetFORMIN HCL 500 MG TABLET PO SCH (17:00)
[2020-01-28 17:15] VITALS: BP 126/73
[2020-01-28 17:28] LABS: GLUCOMETER DEV NAME(LOC) BV3N.; GLUCOSE,POINT OF CARE 177 MG/DL (70-110)
== END 2020-01-28 18:30 | disposition home or self-care (01) | DRG 750 ==
LOC: B3A 18:30
PROVIDERS: ADMIT Psychiatry & Neurology Child & Adolescent Psychiatry; ATTEND Psychiatry & Neurology Child & Adolescent Psychiatry
DX: F25.0 Schizoaffective disorder, bipolar type (principal); E11.9 Type 2 diabetes mellitus without complications; D64.9 Anemia, unspecified; E03.9 Hypothyroidism, unspecified; E78.5 Hyperlipidemia, unspecified; I10 Essential (primary) hypertension; Z59.0 Homelessness
CPT/HCPCS: 83036; 84439; 84443; 87081

== ENCOUNTER 2020-02-01 16:26 | Inpatient (IN) | payer MEDICAID, OTHER ==
[~2020-02-01] VITALS: Ht 188 cm; Wt 82.6 kg
[~2020-02-01 16:26] MED LIST changes: +BACI30OI10 TP; -FLUO40CA7 PO
[2020-02-01 17:08] LABS: EOSINOPHILS % (AUTO) 3.5 % (1.0-6.0); HEMATOCRIT 39.5 % (36-46); HEMOGLOBIN 12.9 g/dL (12.0-16.0); LYMPHOCYTES # (AUTO) 3.7 K/uL (1.0-4.8); LYMPHOCYTES % (AUTO) 36.4 % (22.0-44.0); MEAN CORPUSCULAR HEMOGLOBIN 28.7 pg (26.0-34.0); MEAN CORPUSCULAR HGB CONC 32.6 G/dL (31.0-37.0); MEAN CORPUSCULAR VOLUME 88 fL (80-100); MONOCYTES # (AUTO) 0.9 K/uL (0.1-1.0); MONOCYTES % (AUTO) 8.5 % (2.0-9.0); NEUTROPHILS # (AUTO) 5.2 K/uL (1.8-7.7); NEUTROPHILS % (AUTO) 50.6 % (40.0-70.0); PLATELET COUNT (AUTO) 325 K/uL (150-450)
[2020-02-01 17:32] LABS: ANION GAP 12 mmol/L (8-16); CALCIUM, TOTAL 9.9 mg/dL (8.8-10.5); CARBON DIOXIDE 27 mmol/L (22-29); CHLORIDE 106 mmol/L (98-107); CREATININE 0.82 mg/dL (0.60-1.30); GLOMERULAR FILTR. RATE CALC > 60 mL/min (>60); GLUCOSE,RANDOM 157 mg/dL (70-110); POTASSIUM 3.8 mmol/L (3.5-5.1); SODIUM SERUM 145 mmol/L (136-145); UREA NITROGEN, BLOOD 22 mg/dL (7-18)
[2020-02-01 17:38] LABS: ALANINE AMINOTRANSFERASE 34 U/L (12-78); ALBUMIN 4.6 g/dL (3.4-5.0); ALKALINE PHOSPHATASE 96 U/L (46-116); ASPARTATE AMINOTRANSFERASE 31 U/L (15-37); BILIRUBIN,TOTAL 0.6 mg/dL (0.1-1.0); TOTAL PROTEIN, SERUM 8.8 g/dL (6.4-8.2)
[2020-02-01] MEDS ORDERED: DiphenhydrAMINE HCL 50 MG/ML VIAL IM ONE (17:45)
[2020-02-01] MEDS ORDERED: ZIPRASIDONE MESYLATE 20 MG/VIAL IM ONE (17:45)
[2020-02-01] MEDS ORDERED: LORazepam 2 MG/ML VIAL IM ONE (17:45)
[2020-02-01] MEDS ORDERED: HALOPERIDOL 5 MG TABLET PO PRN (19:15)
[2020-02-01] MEDS ORDERED: ZOLPIDEM TARTRATE 10 MG TABLET PO PRN (19:15)
[2020-02-01] MEDS ORDERED: INFLUENZA VIRUS VACCINE QVS 2019-20 (3YR+)/PF 60 MCG/0.5 ML SYRINGE IM ONE (21:15)
[2020-02-01] MEDS ORDERED: PNEUMOCOCCAL VACCINE POLYVALENT 0.5 ML VIAL [PPSV23] IM ONE (21:15)
[2020-02-01 21:51] LABS: GLUCOMETER DEV NAME(LOC) BV3N.; GLUCOSE,POINT OF CARE 122 MG/DL (70-110)
[2020-02-01 22:11] VITALS: BP 143/91
[2020-02-02 06:24] VITALS: BP 149/65
[2020-02-02] MEDS ORDERED: LEVOTHYROXINE SODIUM 200 MCG TABLET PO SCH (06:30)
[2020-02-02] MEDS ORDERED: MetFORMIN HCL 500 MG TABLET PO SCH (07:00)
[2020-02-02 08:16] VITALS: BP 132/79
[2020-02-02] MEDS: ATORVASTATIN CALCIUM 20 MG TABLET PO SCH ×2 (08:46→09:00)
[2020-02-02] MEDS: BACITRACIN 28.4 GM OINTMENT TP SCH ×3 (08:46→18:03)
[2020-02-02] MEDS ORDERED: ALBUTEROL SULFATE HFA 90 MCG/PUFF 8 GM INHALER IH PRN (10:00)
[2020-02-02] MEDS ORDERED: MAG HYDROX/AL HYDROX/SIMETH ES 30 ML SUSPENSION UDCUP PO PRN (10:00)
[2020-02-02] MEDS ORDERED: LOPERAMIDE HCL 2 MG CAPSULE PO PRN (10:00)
[2020-02-02] MEDS ORDERED: MAGNESIUM HYDROXIDE SUSPENSION 30 ML UDCUP PO PRN (10:00)
[2020-02-02] MEDS ORDERED: NICOTINE 14 MG/24 HOUR PATCH TD PRN (10:00)
[2020-02-02] MEDS ORDERED: ONDANSETRON HCL 4 MG TABLET PO PRN (10:00)
[2020-02-02] MEDS ORDERED: GuaiFENesin/D-METHORPHAN [SUGAR-FREE] 200-20MG/10 ML SYRUP UDCUP PO PRN (10:00)
[2020-02-02] MEDS ORDERED: CloNIDine HCL 0.1 MG TABLET PO PRN (10:00)
[2020-02-02] MEDS ORDERED: PETROLATUM,WHITE 28 GM JELLY TP PRN (10:00)
[2020-02-02] MEDS ORDERED: DOCUSATE SODIUM 100 MG CAPSULE PO PRN (10:00)
[2020-02-02] MEDS: IBUPROFEN 400 MG TABLET PO PRN (10:25)
[2020-02-02] MEDS: LORazepam 2 MG TABLET PO PRN (10:28)
[2020-02-02] MEDS ORDERED: DiphenhydrAMINE HCL 50 MG/ML VIAL ONE (15:45)
[2020-02-02] MEDS ORDERED: LORazepam 2 MG/ML VIAL ONE (15:45)
[2020-02-02] MEDS ORDERED: HALOPERIDOL LACTATE 5 MG/ML VIAL ONE (15:45)
[2020-02-02] MEDS ORDERED: LORazepam 2 MG/ML VIAL IM ONE (16:00)
[2020-02-02] MEDS ORDERED: DiphenhydrAMINE HCL 50 MG/ML VIAL IM ONE (16:00)
[2020-02-02] MEDS ORDERED: HALOPERIDOL LACTATE 5 MG/ML VIAL IM ONE (16:00)
[2020-02-02 17:32] VITALS: BP 123/66
[2020-02-02 17:34] LABS: GLUCOMETER DEV NAME(LOC) BV3N.; GLUCOSE,POINT OF CARE 264 MG/DL (70-110)
[2020-02-02] MEDS: OLANZapine 5 MG TABLET PO SCH (18:03)
[2020-02-02] MEDS: MetFORMIN HCL 500 MG TABLET PO SCH (18:03)
[2020-02-02 21:01] LABS: GLUCOMETER DEV NAME(LOC) BV3N.; GLUCOSE,POINT OF CARE 166 MG/DL (70-110)
[2020-02-02] MEDS: QUEtiapine FUMARATE 100 MG TABLET PO SCH (21:07)
[2020-02-03 06:08] VITALS: BP 110/56
[2020-02-03] MEDS: LEVOTHYROXINE SODIUM 200 MCG TABLET PO SCH (07:14)
[2020-02-03] MEDS: MetFORMIN HCL 500 MG TABLET PO SCH ×2 (07:14→17:41)
[2020-02-03 08:32] LABS: ALANINE AMINOTRANSFERASE 29 U/L (12-78); ALBUMIN 3.3 g/dL (3.4-5.0); ALKALINE PHOSPHATASE 76 U/L (46-116); ANION GAP 6 mmol/L (8-16); ASPARTATE AMINOTRANSFERASE 25 U/L (15-37); BILIRUBIN,TOTAL 0.3 mg/dL (0.1-1.0); CALCIUM, TOTAL 8.5 mg/dL (8.8-10.5); CARBON DIOXIDE 28 mmol/L (22-29); CHLORIDE 106 mmol/L (98-107); CREATININE 0.65 mg/dL (0.60-1.30); GLOMERULAR FILTR. RATE CALC > 60 mL/min (>60); GLUCOSE,RANDOM 124 mg/dL (70-110); SODIUM SERUM 140 mmol/L (136-145); TOTAL PROTEIN, SERUM 6.8 g/dL (6.4-8.2); UREA NITROGEN, BLOOD 15 mg/dL (7-18)
[2020-02-03] MEDS: OLANZapine 5 MG TABLET PO SCH ×2 (09:47→17:41)
[2020-02-03] MEDS: ATORVASTATIN CALCIUM 20 MG TABLET PO SCH (09:47)
[2020-02-03] MEDS: BACITRACIN 28.4 GM OINTMENT TP SCH ×2 (09:47→17:41)
[2020-02-03 16:23] VITALS: BP 102/60
[2020-02-03 16:50] LABS: GLUCOMETER DEV NAME(LOC) BV3N.; GLUCOSE,POINT OF CARE 200 MG/DL (70-110)
[2020-02-03] MEDS: QUEtiapine FUMARATE 100 MG TABLET PO SCH (20:18)
[2020-02-03 20:38] LABS: GLUCOMETER DEV NAME(LOC) BV3N.; GLUCOSE,POINT OF CARE 167 MG/DL (70-110)
[2020-02-04 04:33] VITALS: BP 123/67
[2020-02-04] MEDS: LEVOTHYROXINE SODIUM 200 MCG TABLET PO SCH (06:38)
[2020-02-04] MEDS: MetFORMIN HCL 500 MG TABLET PO SCH ×2 (06:38→16:50)
[2020-02-04 08:12] VITALS: BP 127/71
[2020-02-04] MEDS: OLANZapine 5 MG TABLET PO SCH ×2 (08:50→16:51)
[2020-02-04] MEDS: ATORVASTATIN CALCIUM 20 MG TABLET PO SCH (08:50)
[2020-02-04] MEDS: BACITRACIN 28.4 GM OINTMENT TP SCH ×2 (08:51→16:50)
[2020-02-04 10:30] LABS: GLUCOMETER DEV NAME(LOC) BV3N.; GLUCOSE,POINT OF CARE 124 MG/DL (70-110)
[2020-02-04 16:19] VITALS: BP 124/76
[2020-02-04 20:32] LABS: GLUCOMETER DEV NAME(LOC) BV3N.; GLUCOSE,POINT OF CARE 110 MG/DL (70-110)
[2020-02-04] MEDS: QUEtiapine FUMARATE 100 MG TABLET PO SCH (20:33)
[2020-02-05 01:17] VITALS: BP 110/70
[2020-02-05] MEDS: LEVOTHYROXINE SODIUM 200 MCG TABLET PO SCH (06:26)
[2020-02-05] MEDS: MetFORMIN HCL 500 MG TABLET PO SCH ×2 (06:37→16:34)
[2020-02-05 08:08] VITALS: BP 117/59
[2020-02-05] MEDS: ATORVASTATIN CALCIUM 20 MG TABLET PO SCH (08:26)
[2020-02-05] MEDS: IBUPROFEN 400 MG TABLET PO PRN (08:29)
[2020-02-05] MEDS: OLANZapine 5 MG TABLET PO SCH ×2 (08:31→16:34)
[2020-02-05] MEDS: BACITRACIN 28.4 GM OINTMENT TP SCH ×2 (08:31→17:15)
[2020-02-05 09:15] LABS: GLUCOMETER DEV NAME(LOC) BV3N.; GLUCOSE,POINT OF CARE 160 MG/DL (70-110)
[2020-02-05 16:50] LABS: GLUCOMETER DEV NAME(LOC) BV3N.; GLUCOSE,POINT OF CARE 218 MG/DL (70-110)
[2020-02-05 16:53] VITALS: BP 118/68
[2020-02-05] MEDS: QUEtiapine FUMARATE 100 MG TABLET PO SCH (20:26)
[2020-02-05 20:42] LABS: GLUCOMETER DEV NAME(LOC) BV3N.; GLUCOSE,POINT OF CARE 155 MG/DL (70-110)
[2020-02-06 01:23] VITALS: BP 129/60
[2020-02-06] MEDS: IBUPROFEN 400 MG TABLET PO PRN (01:23)
[2020-02-06] MEDS: MetFORMIN HCL 500 MG TABLET PO SCH ×2 (05:49→16:18)
[2020-02-06] MEDS: LEVOTHYROXINE SODIUM 200 MCG TABLET PO SCH (05:49)
[2020-02-06 08:15] VITALS: BP 114/65
[2020-02-06] MEDS: BACITRACIN 28.4 GM OINTMENT TP SCH ×2 (08:32→17:00)
[2020-02-06] MEDS: OLANZapine 5 MG TABLET PO SCH ×2 (08:32→16:18)
[2020-02-06] MEDS: ATORVASTATIN CALCIUM 20 MG TABLET PO SCH (08:32)
[2020-02-06 10:02] LABS: GLUCOMETER DEV NAME(LOC) BV3N.; GLUCOSE,POINT OF CARE 196 MG/DL (70-110)
[2020-02-06 16:09] VITALS: BP 117/61
[2020-02-06] MEDS: ACETAMINOPHEN 325 MG TABLET PO PRN (17:55)
[2020-02-06 20:31] LABS: GLUCOMETER DEV NAME(LOC) BV3N.; GLUCOSE,POINT OF CARE 140 MG/DL (70-110)
[2020-02-06] MEDS: QUEtiapine FUMARATE 100 MG TABLET PO SCH (20:36)
[2020-02-07 04:07] VITALS: BP 127/78
[2020-02-07] MEDS: MetFORMIN HCL 500 MG TABLET PO SCH ×2 (06:27→16:26)
[2020-02-07] MEDS: LEVOTHYROXINE SODIUM 200 MCG TABLET PO SCH (06:27)
[2020-02-07] MEDS: OLANZapine 5 MG TABLET PO SCH ×2 (08:08→16:26)
[2020-02-07] MEDS: ATORVASTATIN CALCIUM 20 MG TABLET PO SCH (08:08)
[2020-02-07] MEDS: BACITRACIN 28.4 GM OINTMENT TP SCH ×2 (08:08→16:26)
[2020-02-07] MEDS: IBUPROFEN 400 MG TABLET PO PRN (08:09)
[2020-02-07 08:26] VITALS: BP 121/68
[2020-02-07 09:13] LABS: GLUCOMETER DEV NAME(LOC) BV3N.; GLUCOSE,POINT OF CARE 140 MG/DL (70-110)
[2020-02-07 16:16] VITALS: BP 115/71
[2020-02-07 20:26] LABS: GLUCOMETER DEV NAME(LOC) BV3N.; GLUCOSE,POINT OF CARE 124 MG/DL (70-110)
[2020-02-07] MEDS: QUEtiapine FUMARATE 100 MG TABLET PO SCH (20:39)
[2020-02-08 03:14] VITALS: BP 123/62
[2020-02-08] MEDS: LEVOTHYROXINE SODIUM 200 MCG TABLET PO SCH (06:18)
[2020-02-08] MEDS: MetFORMIN HCL 500 MG TABLET PO SCH ×2 (06:18→16:31)
[2020-02-08 08:22] VITALS: BP 130/97
[2020-02-08] MEDS: ATORVASTATIN CALCIUM 20 MG TABLET PO SCH (08:31)
[2020-02-08] MEDS: OLANZapine 5 MG TABLET PO SCH ×2 (08:31→17:00)
[2020-02-08] MEDS: BACITRACIN 28.4 GM OINTMENT TP SCH ×2 (08:31→16:31)
[2020-02-08 11:01] VITALS: BP 125/95
[2020-02-08] MEDS: ACETAMINOPHEN 325 MG TABLET PO PRN (11:01)
[2020-02-08] MEDS: LORazepam 2 MG TABLET PO PRN (11:02)
[2020-02-08 11:23] LABS: GLUCOMETER DEV NAME(LOC) BV3N.; GLUCOSE,POINT OF CARE 103 MG/DL (70-110)
[2020-02-08 20:13] VITALS: BP 114/69
[2020-02-08 20:31] LABS: GLUCOMETER DEV NAME(LOC) BV3N.; GLUCOSE,POINT OF CARE 151 MG/DL (70-110)
[2020-02-08] MEDS: QUEtiapine FUMARATE 100 MG TABLET PO SCH (20:51)
[2020-02-09 00:14] VITALS: BP 119/78
[2020-02-09] MEDS: ACETAMINOPHEN 325 MG TABLET PO PRN ×2 (00:16→19:13)
[2020-02-09] MEDS: LEVOTHYROXINE SODIUM 200 MCG TABLET PO SCH (06:32)
[2020-02-09] MEDS: MetFORMIN HCL 500 MG TABLET PO SCH ×2 (06:32→16:55)
[2020-02-09 08:19] VITALS: BP 116/65
[2020-02-09] MEDS: ATORVASTATIN CALCIUM 20 MG TABLET PO SCH (08:23)
[2020-02-09] MEDS: OLANZapine 5 MG TABLET PO SCH ×2 (08:28→16:55)
[2020-02-09] MEDS: BACITRACIN 28.4 GM OINTMENT TP SCH ×2 (08:29→16:55)
[2020-02-09 13:42] LABS: GLUCOMETER DEV NAME(LOC) BV3N.; GLUCOSE,POINT OF CARE 152 MG/DL (70-110)
[2020-02-09 16:19] VITALS: BP 122/57
[2020-02-09 19:14] VITALS: BP 125/66
[2020-02-09] MEDS: QUEtiapine FUMARATE 100 MG TABLET PO SCH (20:51)
[2020-02-09 20:57] LABS: GLUCOMETER DEV NAME(LOC) BV3N.; GLUCOSE,POINT OF CARE 146 MG/DL (70-110)
[2020-02-10] MEDS: MetFORMIN HCL 500 MG TABLET PO SCH ×2 (06:16→16:52)
[2020-02-10] MEDS: LEVOTHYROXINE SODIUM 200 MCG TABLET PO SCH (06:16)
[2020-02-10 06:18] VITALS: BP 116/65
[2020-02-10 08:08] VITALS: BP 113/51
[2020-02-10] MEDS: BACITRACIN 28.4 GM OINTMENT TP SCH ×2 (08:23→17:26)
[2020-02-10] MEDS: OLANZapine 5 MG TABLET PO SCH ×2 (08:24→16:52)
[2020-02-10] MEDS: ATORVASTATIN CALCIUM 20 MG TABLET PO SCH (08:24)
[2020-02-10 09:49] LABS: GLUCOMETER DEV NAME(LOC) BV3N.; GLUCOSE,POINT OF CARE 143 MG/DL (70-110)
[2020-02-10 17:18] VITALS: BP 117/73
[2020-02-10] MEDS: QUEtiapine FUMARATE 100 MG TABLET PO SCH (20:34)
[2020-02-10 22:07] LABS: GLUCOMETER DEV NAME(LOC) BV3N.; GLUCOSE,POINT OF CARE 139 MG/DL (70-110)
[2020-02-11 04:23] VITALS: BP 110/65
[2020-02-11] MEDS: LEVOTHYROXINE SODIUM 200 MCG TABLET PO SCH (06:35)
[2020-02-11] MEDS: MetFORMIN HCL 500 MG TABLET PO SCH ×2 (06:35→16:18)
[2020-02-11 08:18] VITALS: BP 119/62
[2020-02-11] MEDS: BACITRACIN 28.4 GM OINTMENT TP SCH ×2 (08:49→17:40)
[2020-02-11] MEDS: ATORVASTATIN CALCIUM 20 MG TABLET PO SCH (08:49)
[2020-02-11] MEDS: OLANZapine 5 MG TABLET PO SCH ×2 (08:49→16:18)
[2020-02-11 09:22] LABS: GLUCOMETER DEV NAME(LOC) BV3N.; GLUCOSE,POINT OF CARE 128 MG/DL (70-110)
[2020-02-11 16:11] VITALS: BP 128/80
[2020-02-11] MEDS: QUEtiapine FUMARATE 100 MG TABLET PO SCH (20:16)
[2020-02-11 20:34] LABS: GLUCOMETER DEV NAME(LOC) BV3N.; GLUCOSE,POINT OF CARE 143 MG/DL (70-110)
[2020-02-12 05:04] VITALS: BP 117/63
[2020-02-12] MEDS: LEVOTHYROXINE SODIUM 200 MCG TABLET PO SCH (06:30)
[2020-02-12] MEDS: MetFORMIN HCL 500 MG TABLET PO SCH ×2 (06:31→16:48)
[2020-02-12 08:15] VITALS: BP 126/67
[2020-02-12] MEDS: OLANZapine 5 MG TABLET PO SCH ×2 (08:33→16:48)
[2020-02-12] MEDS: ATORVASTATIN CALCIUM 20 MG TABLET PO SCH (08:33)
[2020-02-12 09:44] LABS: GLUCOMETER DEV NAME(LOC) BV3N.; GLUCOSE,POINT OF CARE 157 MG/DL (70-110)
[2020-02-12 16:05] VITALS: BP 116/70
[2020-02-12] MEDS: ACETAMINOPHEN 325 MG TABLET PO PRN (19:05)
[2020-02-12] MEDS: QUEtiapine FUMARATE 100 MG TABLET PO SCH (20:31)
[2020-02-12 20:49] LABS: GLUCOMETER DEV NAME(LOC) BV3N.; GLUCOSE,POINT OF CARE 148 MG/DL (70-110)
[2020-02-13 02:32] VITALS: BP 105/71
[2020-02-13] MEDS: LEVOTHYROXINE SODIUM 200 MCG TABLET PO SCH (06:36)
[2020-02-13] MEDS: MetFORMIN HCL 500 MG TABLET PO SCH ×2 (06:36→16:24)
[2020-02-13 08:04] VITALS: BP 102/57
[2020-02-13 08:34] VITALS: BP 102/57
[2020-02-13] MEDS: ATORVASTATIN CALCIUM 20 MG TABLET PO SCH (08:34)
[2020-02-13] MEDS: OLANZapine 5 MG TABLET PO SCH ×2 (08:34→16:24)
[2020-02-13] MEDS: ACETAMINOPHEN 325 MG TABLET PO PRN (08:34)
[2020-02-13] MEDS: IBUPROFEN 400 MG TABLET PO PRN (15:42)
[2020-02-13 17:19] VITALS: BP 130/60
[2020-02-13 20:17] LABS: GLUCOMETER DEV NAME(LOC) BV3N.; GLUCOSE,POINT OF CARE 151 MG/DL (70-110)
[2020-02-13] MEDS: QUEtiapine FUMARATE 100 MG TABLET PO SCH (20:28)
[2020-02-14 02:40] VITALS: BP 125/65
[2020-02-14] MEDS: MetFORMIN HCL 500 MG TABLET PO SCH ×2 (06:30→17:05)
[2020-02-14] MEDS: LEVOTHYROXINE SODIUM 200 MCG TABLET PO SCH (06:30)
[2020-02-14 08:20] VITALS: BP 121/72
[2020-02-14] MEDS: ATORVASTATIN CALCIUM 20 MG TABLET PO SCH (08:58)
[2020-02-14] MEDS: OLANZapine 5 MG TABLET PO SCH ×2 (08:58→17:05)
[2020-02-14 12:52] LABS: GLUCOMETER DEV NAME(LOC) BV3N.; GLUCOSE,POINT OF CARE 161 MG/DL (70-110)
[2020-02-14 16:23] VITALS: BP 111/74
[2020-02-14] MEDS: IBUPROFEN 400 MG TABLET PO PRN (16:42)
[2020-02-14] MEDS: QUEtiapine FUMARATE 100 MG TABLET PO SCH (20:48)
[2020-02-14 22:58] LABS: GLUCOMETER DEV NAME(LOC) BV3N.; GLUCOSE,POINT OF CARE 139 MG/DL (70-110)
[2020-02-15 04:13] VITALS: BP 102/72
[2020-02-15] MEDS: MetFORMIN HCL 500 MG TABLET PO SCH ×2 (06:27→17:06)
[2020-02-15] MEDS: LEVOTHYROXINE SODIUM 200 MCG TABLET PO SCH (06:27)
[2020-02-15 08:23] VITALS: BP 110/70
[2020-02-15] MEDS: OLANZapine 5 MG TABLET PO SCH ×2 (08:41→17:06)
[2020-02-15] MEDS: ATORVASTATIN CALCIUM 20 MG TABLET PO SCH (08:41)
[2020-02-15 09:54] LABS: GLUCOMETER DEV NAME(LOC) BV3N.; GLUCOSE,POINT OF CARE 157 MG/DL (70-110)
[2020-02-15] MEDS: IBUPROFEN 400 MG TABLET PO PRN (13:15)
[2020-02-15 16:06] VITALS: BP 104/61
[2020-02-15 20:21] LABS: GLUCOMETER DEV NAME(LOC) BV3N.; GLUCOSE,POINT OF CARE 188 MG/DL (70-110)
[2020-02-15] MEDS: QUEtiapine FUMARATE 100 MG TABLET PO SCH (20:56)
[2020-02-16 02:53] VITALS: BP 100/65
[2020-02-16] MEDS: LEVOTHYROXINE SODIUM 200 MCG TABLET PO SCH (06:31)
[2020-02-16] MEDS: MetFORMIN HCL 500 MG TABLET PO SCH ×2 (06:32→16:18)
[2020-02-16] MEDS: ATORVASTATIN CALCIUM 20 MG TABLET PO SCH (08:09)
[2020-02-16] MEDS: OLANZapine 5 MG TABLET PO SCH ×2 (08:09→16:18)
[2020-02-16 08:27] VITALS: BP 119/51
[2020-02-16 09:24] LABS: GLUCOMETER DEV NAME(LOC) BV3N.; GLUCOSE,POINT OF CARE 218 MG/DL (70-110)
[2020-02-16 16:27] LABS: GLUCOMETER DEV NAME(LOC) BV3N.; GLUCOSE,POINT OF CARE 145 MG/DL (70-110)
[2020-02-16 16:58] VITALS: BP 110/61
[2020-02-16] MEDS: QUEtiapine FUMARATE 100 MG TABLET PO SCH (20:07)
[2020-02-16 20:16] LABS: GLUCOMETER DEV NAME(LOC) BV3N.; GLUCOSE,POINT OF CARE 155 MG/DL (70-110)
[2020-02-17 03:10] VITALS: BP 122/74
[2020-02-17] MEDS: LEVOTHYROXINE SODIUM 200 MCG TABLET PO SCH (06:27)
[2020-02-17] MEDS: MetFORMIN HCL 500 MG TABLET PO SCH ×2 (06:27→16:03)
[2020-02-17 08:28] VITALS: BP 120/59
[2020-02-17] MEDS: OLANZapine 5 MG TABLET PO SCH ×2 (08:28→16:03)
[2020-02-17] MEDS: ATORVASTATIN CALCIUM 20 MG TABLET PO SCH (08:29)
[2020-02-17 10:12] LABS: GLUCOMETER DEV NAME(LOC) BV3N.; GLUCOSE,POINT OF CARE 146 MG/DL (70-110)
[2020-02-17 16:05] VITALS: BP 104/70
[2020-02-17 16:33] LABS: GLUCOMETER DEV NAME(LOC) BV3N.; GLUCOSE,POINT OF CARE 196 MG/DL (70-110)
[2020-02-17] MEDS: QUEtiapine FUMARATE 100 MG TABLET PO SCH (20:09)
[2020-02-17 20:15] LABS: GLUCOMETER DEV NAME(LOC) BV3N.; GLUCOSE,POINT OF CARE 126 MG/DL (70-110)
[2020-02-18 05:03] VITALS: BP 108/73
[2020-02-18] MEDS: LEVOTHYROXINE SODIUM 200 MCG TABLET PO SCH (06:37)
[2020-02-18] MEDS: MetFORMIN HCL 500 MG TABLET PO SCH ×2 (06:37→16:27)
[2020-02-18] MEDS: ATORVASTATIN CALCIUM 20 MG TABLET PO SCH (08:51)
[2020-02-18] MEDS: OLANZapine 5 MG TABLET PO SCH ×2 (08:51→16:27)
[2020-02-18 09:08] VITALS: BP 127/70
[2020-02-18 09:35] LABS: GLUCOMETER DEV NAME(LOC) BV3N.; GLUCOSE,POINT OF CARE 174 MG/DL (70-110)
[2020-02-18] MEDS ORDERED: OLAN5TAB2 PO (10:28)
== END 2020-02-18 19:25 | disposition home or self-care (01) | DRG 750 ==
LOC: EMS 16:28 → B3A 19:00
PROVIDERS: ADMIT Psychiatry & Neurology Child & Adolescent Psychiatry; ATTEND Psychiatry & Neurology Child & Adolescent Psychiatry
DX: F20.0 Paranoid schizophrenia (principal); E11.9 Type 2 diabetes mellitus without complications; D64.9 Anemia, unspecified; E03.9 Hypothyroidism, unspecified; E78.5 Hyperlipidemia, unspecified; F17.210 Nicotine dependence, cigarettes, uncomplicated; F19.10 Other psychoactive substance abuse, uncomplicated; I10 Essential (primary) hypertension; Z91.19 Patient's noncompliance with other medical treatment and regimen; Z88.0 Allergy status to penicillin; Z88.8 Allergy status to other drugs, medicaments and biological substances; Z59.0 Homelessness; Z28.21 Immunization not carried out because of patient refusal
CPT/HCPCS: G0480; J1200; J1630; J2060; J3486

== ENCOUNTER 2020-05-14 10:13 | Inpatient (IN) | payer MEDICAID ==
[~2020-05-14] VITALS: Ht 157.5 cm; Wt 91.2 kg
[~2020-05-14 10:13] MED LIST changes: -BACI30OI10 TP; +OLAN5TAB2 PO
[2020-05-14 17:26] VITALS: BP 107/65
[2020-05-14] MEDS: IBUPROFEN 400 MG TABLET PO PRN (17:48)
[2020-05-14] MEDS: ZOLPIDEM TARTRATE 10 MG TABLET PO PRN (22:44)
[2020-05-15] MEDS: IBUPROFEN 400 MG TABLET PO PRN (04:24)
[2020-05-15 05:16] VITALS: BP 137/72
[2020-05-15 06:12] LABS: GLUCOMETER DEV NAME(LOC) BV3S.; GLUCOSE,POINT OF CARE 168 MG/DL (70-110)
[2020-05-15] MEDS: MetFORMIN HCL 500 MG TABLET PO SCH ×2 (06:36→16:41)
[2020-05-15] MEDS: LEVOTHYROXINE SODIUM 200 MCG TABLET PO SCH (06:36)
[2020-05-15] MEDS: ATORVASTATIN CALCIUM 20 MG TABLET PO SCH (08:09)
[2020-05-15 08:13] LABS: BASOPHILS % (AUTO) 0.9 % (0.0-2.0); EOSINOPHILS % (AUTO) 3.9 % (1.0-6.0); HEMATOCRIT 36.4 % (36-46); HEMOGLOBIN 12.2 g/dL (12.0-16.0); LYMPHOCYTES # (AUTO) 2.4 K/uL (1.0-4.8); LYMPHOCYTES % (AUTO) 41.5 % (22.0-44.0); MEAN CORPUSCULAR HEMOGLOBIN 29.6 pg (26.0-34.0); MEAN CORPUSCULAR HGB CONC 33.5 G/dL (31.0-37.0); MEAN CORPUSCULAR VOLUME 88 fL (80-100); MONOCYTES # (AUTO) 0.5 K/uL (0.1-1.0); MONOCYTES % (AUTO) 7.7 % (2.0-9.0); NEUTROPHILS # (AUTO) 2.7 K/uL (1.8-7.7); PLATELET COUNT (AUTO) 233 K/uL (150-450); RED BLOOD CELL COUNT(AUTO) 4.13 MIL/uL (4.00-5.20); RED CELL DISTRIBUTION WIDTH 13.4 % (11.5-14.5)
[2020-05-15 08:27] VITALS: BP 109/58
[2020-05-15 09:00] LABS: ALANINE AMINOTRANSFERASE 27 U/L (12-78); ALBUMIN 3.9 g/dL (3.4-5.0); ALKALINE PHOSPHATASE 78 U/L (46-116); ANION GAP 5 mmol/L (8-16); ASPARTATE AMINOTRANSFERASE 16 U/L (15-37); BILIRUBIN,TOTAL 0.3 mg/dL (0.1-1.0); CALCIUM, TOTAL 10.1 mg/dL (8.8-10.5); CARBON DIOXIDE 31 mmol/L (22-29); CHLORIDE 101 mmol/L (98-107); CREATININE 0.83 mg/dL (0.60-1.30); GLOMERULAR FILTR. RATE CALC > 60 mL/min (>60); GLUCOSE,RANDOM 134 mg/dL (70-110); POTASSIUM 4.7 mmol/L (3.5-5.1); SODIUM SERUM 137 mmol/L (136-145); THYROID STIMULATING HORMONE 1.61 uIU/mL (0.36-3.74); TOTAL PROTEIN, SERUM 7.6 g/dL (6.4-8.2); UREA NITROGEN, BLOOD 17 mg/dL (7-18)
[2020-05-15] MEDS ORDERED: GuaiFENesin/D-METHORPHAN [SUGAR-FREE] 200-20MG/10 ML SYRUP UDCUP PO PRN (09:15)
[2020-05-15] MEDS ORDERED: LOPERAMIDE HCL 2 MG CAPSULE PO PRN (09:15)
[2020-05-15] MEDS ORDERED: IBUPROFEN 400 MG TABLET PO PRN (09:15)
[2020-05-15] MEDS ORDERED: DOCUSATE SODIUM 100 MG CAPSULE PO PRN (09:15)
[2020-05-15] MEDS ORDERED: ONDANSETRON HCL 4 MG TABLET PO PRN (09:15)
[2020-05-15] MEDS ORDERED: ACETAMINOPHEN 325 MG TABLET PO PRN (09:15)
[2020-05-15] MEDS ORDERED: MAGNESIUM HYDROXIDE SUSPENSION 30 ML UDCUP PO PRN (09:15)
[2020-05-15] MEDS ORDERED: PETROLATUM,WHITE 28 GM JELLY TP PRN (09:15)
[2020-05-15] MEDS ORDERED: ALBUTEROL SULFATE HFA 90 MCG/PUFF 8 GM INHALER IH PRN (09:15)
[2020-05-15] MEDS ORDERED: CloNIDine HCL 0.1 MG TABLET PO PRN (09:15)
[2020-05-15] MEDS ORDERED: MAG HYDROX/AL HYDROX/SIMETH ES 30 ML SUSPENSION UDCUP PO PRN (09:15)
[2020-05-15 11:17] LABS: GLUCOMETER DEV NAME(LOC) BV3S.; GLUCOSE,POINT OF CARE 124 MG/DL (70-110)
[2020-05-15] MEDS: NICOTINE 14 MG/24 HOUR PATCH TD PRN (12:33)
[2020-05-15] MEDS: LORazepam 2 MG TABLET PO PRN (13:45)
[2020-05-15 16:13] LABS: GLUCOMETER DEV NAME(LOC) BV3S.; GLUCOSE,POINT OF CARE 121 MG/DL (70-110)
[2020-05-15 16:23] VITALS: BP 107/60
[2020-05-15] MEDS: OLANZapine 5 MG TABLET PO SCH (16:41)
[2020-05-15] MEDS: GABAPENTIN 300 MG CAPSULE PO SCH (16:41)
[2020-05-15 20:18] LABS: GLUCOMETER DEV NAME(LOC) BV3S.; GLUCOSE,POINT OF CARE 151 MG/DL (70-110)
[2020-05-15] MEDS: ZOLPIDEM TARTRATE 10 MG TABLET PO PRN (22:58)
[2020-05-16 01:24] VITALS: BP 102/68
[2020-05-16] MEDS: IBUPROFEN 400 MG TABLET PO PRN (05:35)
[2020-05-16 06:11] LABS: GLUCOMETER DEV NAME(LOC) BV3S.; GLUCOSE,POINT OF CARE 146 MG/DL (70-110)
[2020-05-16] MEDS: MetFORMIN HCL 500 MG TABLET PO SCH ×2 (06:38→16:51)
[2020-05-16] MEDS: LEVOTHYROXINE SODIUM 200 MCG TABLET PO SCH (06:38)
[2020-05-16 07:39] LABS: APPEARANCE,URINE CLEAR (CLEAR); BILIRUBIN,URINE NEGATIVE (NEGATIVE); GLUCOSE, URINE (UA) NEGATIVE (NEGATIVE); KETONES,URINE NEGATIVE (NEGATIVE); LEUKOCYTE ESTERASE ,URINE NEGATIVE (NEGATIVE); NITRATE,URINE NEGATIVE (NEGATIVE); OCCULT BLOOD,URINE NEGATIVE (NEGATIVE); PROTEIN,URINE NEGATIVE (NEGATIVE); UROBILINOGEN,URINE 0.2 mg/dL (<=1.0)
[2020-05-16 07:40] LABS: AMPHET/METH SCREEN,URINE NEGATIVE (NEGATIVE); BARBITURATE SCREEN, URINE NEGATIVE (NEGATIVE); BENZODIAZEPINES SCREEN,URINE NEGATIVE (NEGATIVE); CANNABINOID SCREEN,URINE NEGATIVE (NEGATIVE); COCAINE SCREEN,URINE NEGATIVE (NEGATIVE); METHADONE SCREEN, URINE NEGATIVE (NEGATIVE); OPIATE SCREEN,URINE NEGATIVE (NEGATIVE)
[2020-05-16 07:44] LABS: PHENCYCLIDINE SCREEN,URINE NEGATIVE (NEGATIVE)
[2020-05-16] MEDS: ATORVASTATIN CALCIUM 20 MG TABLET PO SCH (08:05)
[2020-05-16] MEDS: LORazepam 2 MG TABLET PO PRN (08:05)
[2020-05-16] MEDS: OLANZapine 5 MG TABLET PO SCH ×2 (08:05→17:00)
[2020-05-16 08:44] VITALS: BP 132/95
[2020-05-16] MEDS: GABAPENTIN 300 MG CAPSULE PO SCH ×2 (09:00→17:00)
[2020-05-16 11:05] LABS: GLUCOMETER DEV NAME(LOC) BV3S.; GLUCOSE,POINT OF CARE 119 MG/DL (70-110)
[2020-05-16 16:20] VITALS: BP 121/67
[2020-05-16 16:59] LABS: GLUCOMETER DEV NAME(LOC) BV3S.; GLUCOSE,POINT OF CARE 207 MG/DL (70-110)
[2020-05-16 20:19] LABS: GLUCOMETER DEV NAME(LOC) BV3S.; GLUCOSE,POINT OF CARE 116 MG/DL (70-110)
[2020-05-16] MEDS: ZOLPIDEM TARTRATE 10 MG TABLET PO PRN (22:09)
[2020-05-16 23:57] VITALS: BP 121/75
[2020-05-17] VITALS: BP 121/75
[2020-05-17 06:12] LABS: GLUCOMETER DEV NAME(LOC) BV3S.; GLUCOSE,POINT OF CARE 126 MG/DL (70-110)
[2020-05-17] MEDS: MetFORMIN HCL 500 MG TABLET PO SCH ×2 (06:45→16:33)
[2020-05-17] MEDS: LEVOTHYROXINE SODIUM 200 MCG TABLET PO SCH (06:45)
[2020-05-17] MEDS: ATORVASTATIN CALCIUM 20 MG TABLET PO SCH (08:06)
[2020-05-17] MEDS: OLANZapine 5 MG TABLET PO SCH ×2 (08:06→16:34)
[2020-05-17] MEDS: GABAPENTIN 300 MG CAPSULE PO SCH ×2 (08:06→16:34)
[2020-05-17] MEDS: NICOTINE POLACRILEX 2 MG LOZENGE PO PRN ×2 (08:15→15:50)
[2020-05-17 08:40] VITALS: BP 126/60
[2020-05-17 14:54] LABS: GLUCOMETER DEV NAME(LOC) BV3S.; GLUCOSE,POINT OF CARE 138 MG/DL (70-110)
[2020-05-17 15:57] LABS: GLUCOMETER DEV NAME(LOC) BV3S.; GLUCOSE,POINT OF CARE 170 MG/DL (70-110)
[2020-05-17 16:50] VITALS: BP 118/73
[2020-05-17 19:45] VITALS: BP 121/83
[2020-05-17 20:51] LABS: GLUCOMETER DEV NAME(LOC) BV3S.; GLUCOSE,POINT OF CARE 142 MG/DL (70-110)
[2020-05-17] MEDS: ZOLPIDEM TARTRATE 10 MG TABLET PO PRN (21:47)
[2020-05-17] MEDS: DENTURE ADHESIVE 68 GM CREAM DT PRN (21:53)
[2020-05-18 00:28] VITALS: BP 118/70
[2020-05-18 04:53] VITALS: BP 121/62
[2020-05-18] MEDS: IBUPROFEN 400 MG TABLET PO PRN (05:34)
[2020-05-18 05:59] LABS: GLUCOMETER DEV NAME(LOC) BV3S.; GLUCOSE,POINT OF CARE 139 MG/DL (70-110)
[2020-05-18] MEDS: MetFORMIN HCL 500 MG TABLET PO SCH (06:32)
[2020-05-18] MEDS: LEVOTHYROXINE SODIUM 200 MCG TABLET PO SCH (06:38)
[2020-05-18] MEDS: DENTURE ADHESIVE 68 GM CREAM DT PRN (08:13)
[2020-05-18] MEDS: GABAPENTIN 300 MG CAPSULE PO SCH (08:13)
[2020-05-18] MEDS: OLANZapine 5 MG TABLET PO SCH (08:13)
[2020-05-18] MEDS: ATORVASTATIN CALCIUM 20 MG TABLET PO SCH (08:14)
[2020-05-18] MEDS: NICOTINE 14 MG/24 HOUR PATCH TD PRN (08:16)
[2020-05-18 08:20] VITALS: BP 131/65
[2020-05-18 11:00] LABS: GLUCOMETER DEV NAME(LOC) BV3S.; GLUCOSE,POINT OF CARE 123 MG/DL (70-110)
[2020-05-18] MEDS ORDERED: GABA-1181 PO (15:54)
[2020-05-18 16:11] VITALS: BP 124/62
[2020-05-18 16:50] LABS: GLUCOMETER DEV NAME(LOC) BV3S.; GLUCOSE,POINT OF CARE 199 MG/DL (70-110)
[2020-05-18] MEDS ORDERED: QUEtiapine FUMARATE 100 MG TABLET PO SCH (21:00)
== END 2020-05-18 18:31 | disposition home or self-care (01) | DRG 885 ==
LOC: B3A 15:43
PROVIDERS: ADMIT Psychiatry & Neurology Psychiatry; ATTEND Psychiatry & Neurology Psychiatry
DX: F25.0 Schizoaffective disorder, bipolar type (principal); E03.9 Hypothyroidism, unspecified; E11.9 Type 2 diabetes mellitus without complications; F19.10 Other psychoactive substance abuse, uncomplicated; E78.5 Hyperlipidemia, unspecified; I10 Essential (primary) hypertension; K21.9 Gastro-esophageal reflux disease without esophagitis; Z79.899 Other long term (current) drug therapy; Z79.84 Long term (current) use of oral hypoglycemic drugs; Z88.0 Allergy status to penicillin; Z88.8 Allergy status to other drugs, medicaments and biological substances; Z71.51 Drug abuse counseling and surveillance of drug abuser
CPT/HCPCS: 80307; 84443; 87081

== ENCOUNTER 2020-06-27 16:47 | Emergency (ER) | payer MEDICAID, OTHER ==
[~2020-06-27] VITALS: Ht 165.1 cm; Wt 81.8 kg
[~2020-06-27 16:47] MED LIST changes: +GABA-1181 PO; -QUET100T PO
[2020-06-27 17:38] LABS: BASOPHILS % (AUTO) 0.9 % (0.0-2.0); EOSINOPHILS % (AUTO) 0.3 % (1.0-6.0); HEMATOCRIT 36.2 % (36-46); HEMOGLOBIN 11.9 g/dL (12.0-16.0); LYMPHOCYTES # (AUTO) 2.3 K/uL (1.0-4.8); LYMPHOCYTES % (AUTO) 18.6 % (22.0-44.0); MEAN CORPUSCULAR HEMOGLOBIN 28.9 pg (26.0-34.0); MEAN CORPUSCULAR VOLUME 88 fL (80-100); NEUTROPHILS # (AUTO) 8.9 K/uL (1.8-7.7); NEUTROPHILS % (AUTO) 72.2 % (40.0-70.0); PLATELET COUNT (AUTO) 302 K/uL (150-450); RED BLOOD CELL COUNT(AUTO) 4.13 MIL/uL (4.00-5.20)
[2020-06-27] MEDS ORDERED: LORazepam 2 MG/ML VIAL IM ONE (17:45)
[2020-06-27 18:08] LABS: ANION GAP 11 mmol/L (8-16); CALCIUM, TOTAL 9.8 mg/dL (8.8-10.5); CARBON DIOXIDE 27 mmol/L (22-29); CHLORIDE 113 mmol/L (98-107); CREATININE 1.03 mg/dL (0.60-1.30); GLOMERULAR FILTR. RATE CALC 56 mL/min (>60); GLUCOSE,RANDOM 119 mg/dL (70-110); POTASSIUM 3.5 mmol/L (3.5-5.1); SODIUM SERUM 151 mmol/L (136-145); UREA NITROGEN, BLOOD 13 mg/dL (7-18)
[2020-06-27 18:09] LABS: GLUCOSE,POINT OF CARE 110 MG/DL (70-110)
[2020-06-27 18:14] LABS: ALANINE AMINOTRANSFERASE 51 U/L (12-78); ALBUMIN 4.2 g/dL (3.4-5.0); ALKALINE PHOSPHATASE 91 U/L (46-116); ASPARTATE AMINOTRANSFERASE 50 U/L (15-37); BILIRUBIN,TOTAL 0.4 mg/dL (0.1-1.0); TOTAL PROTEIN, SERUM 8.4 g/dL (6.4-8.2)
[2020-06-27 19:34] LABS: AMPHET/METH SCREEN,URINE POSITIVE (NEGATIVE); BARBITURATE SCREEN, URINE NEGATIVE (NEGATIVE); BENZODIAZEPINES SCREEN,URINE POSITIVE (NEGATIVE); CANNABINOID SCREEN,URINE NEGATIVE (NEGATIVE); COCAINE SCREEN,URINE NEGATIVE (NEGATIVE); METHADONE SCREEN, URINE NEGATIVE (NEGATIVE); OPIATE SCREEN,URINE NEGATIVE (NEGATIVE)
[2020-06-27 19:36] LABS: APPEARANCE,URINE CLEAR (CLEAR); BILIRUBIN,URINE PRELIM. POSITIVE (NEGATIVE); GLUCOSE, URINE (UA) 250 mg/dL (NEGATIVE); KETONES,URINE NEGATIVE (NEGATIVE); LEUKOCYTE ESTERASE ,URINE NEGATIVE (NEGATIVE); NITRATE,URINE NEGATIVE (NEGATIVE); OCCULT BLOOD,URINE NEGATIVE (NEGATIVE); PROTEIN,URINE SEE CONFIRM (NEGATIVE)
[2020-06-27 19:43] LABS: SULFOSALICYLIC ACID,URINE Trace (Negative)
[2020-06-27 19:45] LABS: BACTERIA,URINE None Seen /HPF (None Seen); RBC,URINE None Seen /HPF (0-2); SQUAMOUS EPITHELIAL CELL,UR Rare /LPF (None Seen); WBC,URINE None Seen /HPF (0-5)
[2020-06-27 19:58] LABS: PHENCYCLIDINE SCREEN,URINE NEGATIVE (NEGATIVE)
[2020-06-27] MEDS ORDERED: AZITHROMYCIN 500 MG/NS 250 ML IV ONE (20:15)
[2020-06-27] MEDS ORDERED: CefTRIAXone 1 GM/DEXTROSE 50 ML IV ONE (20:15)
[2020-06-27 21:25] VITALS: BP 109/60
== END 2020-06-27 21:36 | disposition short-term general hospital (02) ==
LOC: EMS 16:49
DX: J18.9 Pneumonia, unspecified organism (principal); F20.0 Paranoid schizophrenia; F17.210 Nicotine dependence, cigarettes, uncomplicated; E11.9 Type 2 diabetes mellitus without complications; I10 Essential (primary) hypertension; Z20.828 Contact with and (suspected) exposure to other viral communicable diseases; Z88.0 Allergy status to penicillin; Z88.8 Allergy status to other drugs, medicaments and biological substances; Z79.84 Long term (current) use of oral hypoglycemic drugs
CPT/HCPCS: 36415; 71045; 80053; 80307; 81001; 82962; 85025; 87040; 87426; 96365; 96368; 96372; 99291; G0480; J0456; J0696; J2060; 51701; 82948